=== PATIENT | male | born 1990 | race Caucasian/White ===

== ENCOUNTER 2024-01-29 08:47 | Emergency (ER) | payer SELFPAY ==
[2024-01-29] MEDS: Acetaminophen 500 MG Tab PO ONE (09:40)
== END 2024-01-29 10:17 | disposition home or self-care (01) ==
LOC: DL.ED 08:47
DX: S43.422A Sprain of left rotator cuff capsule, initial encounter (principal); F17.210 Nicotine dependence, cigarettes, uncomplicated; Z88.0 Allergy status to penicillin; X50.1XXA Overexertion from prolonged static or awkward postures, initial encounter; Y93.84 Activity, sleeping
CPT/HCPCS: 71046; 73030; 99283; A9270